=== PATIENT | male | born 1950 | race Caucasian/White ===

== ENCOUNTER 2017-09-22 16:38 | Inpatient (IN) | payer OTHER ==
--- NOTE | 2017-09-22 17:38 | ED ---
HPI Chest Pain - HPI Summary HPI Summary: This is Radha ivory, documenting for attending Kyle Moreno MD. This patient is a 66 year old M presenting to [facility] with a chief complaint of intermittent episodes of sharp mid sternal chest pain beginning at 1230 and again while in the ED lasting roughly 5 minutes each. First onset of pain began while cleaning out the air conditioner, with spontaneous resolution. Patient reports nausea only with episodes of chest pain, but otherwise has no nausea. Chest pain unchanged by eating. Denies SOB and cough. Denies hx of chest pain and AL. PMHX of HTN, NIDDM, high cholesterol, and PTSD. SHx includes former smoker, quit in 2006 Patient sent to ED after going to [place] this morning. - History of Current Complaint Chief Complaint: EDChestPainROMI Time Seen by Provider: 09/22/17 17:26 Hx Obtained From: Patient Onset/Duration: Started Hours Ago, Resolved Time of Onset: 12:30 Timing: Intermittent Initial Severity: Moderate Current Severity: None Pain Intensity: 0 Chest Pain Location: Mid Sternal Chest Pain Radiates: No Character: Sharp/Stabbing, Other: Alleviating Factor(s): Spontaneous Resolution Associated Signs and Symptoms: Positive: Chest Pain. Negative: Shortness of Breath, Cough - Allergy/Home Medications Allergies/Adverse Reactions: Allergies Allergy/AdvReac Type Severity Reaction Status Date / Time No Known Allergies Allergy Verified 09/22/17 16:52 PMH/Surg Hx/FS Hx/Imm Hx Endocrine/Hematology History: Reports: Hx Diabetes Cardiovascular History: Reports: Hx Hypercholesterolemia, Hx Hypertension Psychiatric History: Reports: Hx Post Traumatic Stress Disorder - Immunization History Immunizations Up to Date: Yes Infectious Disease History: No Infectious Disease History: Denies: Traveled Outside the [place] in Last 30 Days - Family History Known Family History: Positive: Hypertension - Social History Alcohol Use: None Substance Use Type: Reports: None Smoking Status (MU): Former Smoker Review of Systems Positive: Chest Pain Negative: Shortness Of Breath, Cough All Other Systems Reviewed And Are Negative: Yes Physical Exam - Summary Physical Exam Summary: Appearance: Well-appearing, Well-nourished Skin: Warm Eyes: Normal ENT: Normal Neck: Supple, nontender Respiratory: Bilateral Expiratory Wheezes Cardiovascular: Tachycardic rate, regular rhythm. Normal S1, S2. Abdomen: Soft, nontender Musculoskeletal: Normal, Strength/ROM Intact Neurological: Normal, A&Ox3 Psychiatric: Normal General: No acute distress Triage Information Reviewed: Yes Vital Signs On Initial Exam: Initial Vitals Temp Pulse Resp BP Pulse Ox 98.9 F 92 17 148/97 96 09/22/17 16:48 09/22/17 16:48 09/22/17 16:48 09/22/17 16:48 09/22/17 16:48 Vital Signs Reviewed: Yes Diagnostics - Vital Signs Vital Signs Temp Pulse Resp BP Pulse Ox 09/22/17 16:48 98.9 F 92 17 148/97 96 - Laboratory Result Diagrams: 09/22/17 18:47 09/22/17 18:47 Lab Statement: Any lab studies that have been ordered have been reviewed, and results considered in the medical decision making process. - Radiology CXR Radiology Interpretation Completed By: Radiologist - NO ACTIVE DISEASE. ED Physician has reviewed this report. - EKG 1746 Cardiac Rate: Tachycardia - 100 BPM EKG Rhythm: Sinus Tachycardia EKG Interpretation: mild /questionable < or = [address] elevation v3 v4 v5 1845 Cardiac Rate: NL - 96 BPM EKG Rhythm: Sinus Rhythm EKG Interpretation: less than [address] elevation lead V3, V4 V5 EKG Comparison: No Significant Change Chest Pain Course/Dx - Course Course Of Treatment: Small about 1mm questionable ST elevation in septolateral leads that appear to be new from previous EKG from August 2017, Dr Candelaria and Dr Saleem consulted. Troponin >2, pt will go to [facility] - Diagnoses Provider Diagnoses: Acute coronary syndrome During the Visit The Following Alert/Code Occurred: STEMI - at 18:40 - Provider Notifications Discussed Care Of Patient With: January Candelaria - cardiology Time Discussed With Above Provider: 17:41 Instructed by Provider To: Admit As Inpatient - believes EKG changes are acute. At 19:00 recommends giving patient Beta stas. Discharge - Sign-Out/Discharge Documenting (check all that apply): Patient Departure - Discharge Plan Condition: Stable Disposition: ADMITTED TO [facility] Referrals: No Primary Care Phys,NOPCP [Primary Care Provider] - - Billing Disposition and Condition Condition: STABLE Disposition: Admitted to [facility] Consult Consult: at 18:48, Dr. Saleem, medications order were confirmed and he will come to ED.
--- NOTE | 2017-09-22 17:51 | RAD ---
INDICATION: Chest pain COMPARISON: November 11, 2011 TECHNIQUE: An AP portable view obtained at 1746 hours is submitted. FINDINGS: Bones/Soft Tissues: There are no acute bony findings. Cardiomediastinal: The cardiomediastinal silhouette is normal. Lungs: There are no infiltrates. Pleura: There are no pleural effusions. Other: None IMPRESSION: NO ACTIVE DISEASE.
[2017-09-22 18:04] LABS: ABS Basophils 0.1 10^3/ul (0-0.2); ABS Eosinophils 0.3 10^3/ul (0-0.6); ABS Monocytes 0.8 10^3/ul (0-0.8); ABS Nucleated RBC 0 10^3/ul; Eosinophil % 3.3 % (0-6); Hematocrit 42 % (42-52); Lymphocyte % 21.9 % (25-47); Mean Corpuscular HGB Conc 35 g/dl (31-36); Mean Corpuscular Hemoglobin 32 pg (27-31); Mean Corpuscular Volume 91 fL (80-94); Mean Platelet Volume 9.1 um3 (7.4-10.4); Nucleated Red Blood Cells % 0; Platelet Count 189 10^3/ul (150-450); Red Blood Count 4.66 10^6/ul (4.00-5.40); Red Cell Distribution Width 13 % (10.5-15); White Blood Count 9.2 10^3/ul (3.5-10.8)
[2017-09-22] MEDS ORDERED: Heparin DRIP 25,000 UNITS(*) 25,000 UNITS/500 ML BAG ONE (18:42)
[2017-09-22] MEDS ORDERED: Heparin for STEMI(*) 5,000 UNITS/ML 1 ML VIAL IV ONE ×2 (18:43→18:44)
[2017-09-22] MEDS ORDERED: Nitroglycerin TAB 0.4 MG* 0.4 MG TAB ONE ×2 (18:43→18:46)
[2017-09-22] MEDS ORDERED: Aspirin 81 mg CHEW TAB* 81 MG TAB.CHEW ONE ×2 (18:44→18:47)
[2017-09-22] MEDS ORDERED: nitroGLYCERIN DRIP* 0 MCG/0 ML BTL ONE (18:44)
[2017-09-22] MEDS ORDERED: Heparin DRIP 25,000 UNITS(*) 25,000 UNITS/500 ML BAG IV SCH (18:45)
[2017-09-22] MEDS ORDERED: Ticagrelor* 90 MG TAB PO ONE ×2 (18:47→18:48)
[2017-09-22] MEDS ORDERED: Aspirin 81 mg CHEW TAB* 81 MG TAB.CHEW PO ONE (18:52)
[2017-09-22] MEDS ORDERED: Nitroglycerin 0.2 MG/HR PATCH* (5 MG) TRANSDERM ONE (18:54)
[2017-09-22] MEDS ORDERED: Heparin 2 UNITS/ML IVPREMIX* 3,000 ML IV ONE (18:56)
[2017-09-22] MEDS ORDERED: nitroGLYCERIN DRIP* 25,000 MCG/250 ML BTL ONE (18:56)
[2017-09-22] MEDS ORDERED: Lidocaine 1%* 5 ML VIAL ONE ×2 (18:57→19:08)
[2017-09-22] MEDS ORDERED: VERAPAMIL 2.5 MG/ML 2 ML VIAL ** 5 mg/2 ml ONE (18:57)
[2017-09-22] MEDS ORDERED: Iohexol 350 (CONTRAST) 200 ML MDV IV ONE (18:58)
[2017-09-22] MEDS ORDERED: Heparin VIAL(*) 5000 UNITS/ML VIAL (FIVE THOUSAND) IV SCH (19:00)
[2017-09-22] MEDS ORDERED: Metoprolol Tartrate TAB* 25 MG PO ONE (19:00)
[2017-09-22 19:11] LABS: Hematocrit 42 % (42-52); Hemoglobin 14.9 g/dl (14.0-18.0); Mean Corpuscular HGB Conc 35 g/dl (31-36); Mean Corpuscular Hemoglobin 32 pg (27-31); Mean Corpuscular Volume 92 fL (80-94); Mean Platelet Volume 9.3 um3 (7.4-10.4); Platelet Count 191 10^3/ul (150-450); Red Blood Count 4.62 10^6/ul (4.00-5.40); Red Cell Distribution Width 13 % (10.5-15); White Blood Count 8.8 10^3/ul (3.5-10.8)
[2017-09-22 19:13] LABS: INR 0.92 (0.77-1.02)
[2017-09-22] MEDS ORDERED: Midazolam* 1 MG/ML 10 ML VIAL (10 MG) ONE (19:26)
[2017-09-22] MEDS ORDERED: fentaNYL* 50 MCG/ML 2 ML VIAL (100 MCG VIAL) ONE (19:26)
[2017-09-22 19:29] LABS: EGFR Non-African American 77.9 (>60)
[2017-09-22] MEDS ORDERED: Heparin(*) 1000 UNIT/ML 10 ML VIAL CATH LAB IV ONE (19:53)
[2017-09-22] MEDS ORDERED: Nitroglycerin TAB 0.4 MG* 0.4 MG TAB SL PRN (20:07)
[2017-09-22] MEDS ORDERED: Zolpidem TAB* 5 MG PO PRN (20:12)
[2017-09-22] MEDS ORDERED: Ondansetron INJ* 2 MG/ML VIAL IV PRN (20:12)
[2017-09-22] MEDS ORDERED: Acetaminophen TAB* 325 MG PO PRN (20:12)
[2017-09-22] MEDS ORDERED: Docusate CAP* 100 MG PO PRN (20:12)
[2017-09-22] MEDS ORDERED: NS 0.9% 1000 ML* 500 ML IV ONE (20:15)
[2017-09-22] MEDS: Metoprolol Tartrate TAB* 25 MG PO SCH (21:38)
[2017-09-22] MEDS: Atorvastatin* 40 MG TAB PO SCH (21:38)
[2017-09-22] MEDS: Magnesium Oxide TAB* 400 MG PO SCH (22:31)
[2017-09-22] MEDS: buPROPion SR TAB.SR* 150 MG PO SCH (22:31)
[2017-09-22] MEDS: busPIRone TAB* 10 MG PO SCH (22:32)
[2017-09-22] MEDS ORDERED: Albuterol HFA INHALER* 8 gm MDI INH SCH (23:00)
[2017-09-23] MEDS: Metoprolol Tartrate TAB* 25 MG PO SCH ×3 (05:53→20:40)
[2017-09-23] MEDS: Ticagrelor* 90 MG TAB PO SCH ×2 (06:02→20:43)
[2017-09-23 07:46] LABS: EGFR Non-African American 74.4 (>60)
[2017-09-23] MEDS ORDERED: Perflutren Lipid Microsphere* 3 ML VIAL ONE (07:56)
[2017-09-23] MEDS: Cetirizine* 10 MG TAB PO SCH (08:36)
[2017-09-23] MEDS: Omeprazole CAP* 20 MG PO SCH (08:36)
[2017-09-23] MEDS: Lisinopril TAB* 10 MG PO SCH (08:36)
[2017-09-23] MEDS: Aspirin 81 mg CHEW TAB* 81 MG TAB.CHEW PO SCH (08:36)
[2017-09-23] MEDS: buPROPion SR TAB.SR* 150 MG PO SCH ×2 (08:36→20:40)
[2017-09-23] MEDS: busPIRone TAB* 10 MG PO SCH ×3 (08:36→20:40)
--- NOTE | 2017-09-23 09:20 | HP ---
ADMISSION HISTORY AND PHYSICAL: CC: Kristy Eldridge NP [place], [place] DATE OF ADMISSION: 09/22/17 CHIEF COMPLAINT: Patient with intermittent chest discomfort throughout the day with abnormal cardiac enzyme and abnormal EKG. HISTORY OF PRESENT ILLNESS: The patient is a pleasant 66-year-old gentleman with no pertinent cardiac history. Specifically, he denies any history of myocardial infarction, congestive heart failure, or significant heart rhythm disturbance. The patient states he was in his usual state of health and earlier today he developed the onset of a chest burning sensation in the midsternal area without significant radiation to the throat jaw, arms, or back. With it, he noted some nauseous feeling. These episodes were brief in nature lasting perhaps 5 minutes. He described having one occurring while he was cleaning out an air-conditioner with spontaneous resolution. According to the emergency room physician note, he did not have any change to the symptoms when he would eat. He denied any significant diaphoresis or shortness of breath. Because of this, he drove to the [facility] and they sent him by ambulance to the emergency room. In the emergency room, an EKG demonstrated mild J-point elevation in the precordial leads without reciprocal changes. At that point in time, the emergency room physician ended up getting the laboratory results and found that the total troponin was 2.18. With that, she called Dr. Candelaria, the non-edge stitcher contracts representative, who reviewed the EKG. Dr. Candelaria compared it to an earlier EKG from several years ago and said that the ST changes were not present then, as such, a STEMI alert was called. On my arrival , the patient was having no significant chest discomfort. He stated when he went to the [place], he was not having any chest discomfort as well. A repeat EKG was done that showed perhaps some improvement to the ST segments and there was mild coving of the J-point elevation in V2. Given the abnormal troponin, EKG, and symptoms, the decision was made to proceed to the cardiovascular laboratory. Of note, he had received heparin 4000 units intravenously, Brilinta 180 mg, and aspirin 325 mg. His cardiac risk factors include a history of hypertension, hyperlipidemia, diabetes. He is a nonsmoker and he has no reported family history of early coronary artery disease. PAST MEDICAL HISTORY: Also includes significant chronic obstructive lung disease. CURRENT MEDICATIONS: Include: 1. Albuterol inhaler 2 puffs every 4 hours. 2. Atorvastatin 40 mg a day. 3. Bupropion 150 mg twice a day. 4. Buspirone 10 mg 3 times a day for anxiety. 5. Cholecalciferol 2000 units by mouth every day. 6. Fluticasone nasal sprays twice a day. 7. Lisinopril 20 mg a day. 8. Loratadine 10 mg a day. 9. Magnesium oxide 400 mg a day. 10. Metformin 500 mg every day. 11. Omeprazole 20 mg once a day. 12. Terbinafine hydrochloride 1% cream topically as needed. REVIEW OF SYSTEMS: Pertinent to proceeding to the cardiovascular laboratory included no history of prior TIA or stroke. He had no history of known renal disease that he was aware of. He had no history of contrast allergy. He had no history of hematemesis, hematochezia, but he did say in the distant past he had hematuria that had been worked up and found no significant abnormalities. PHYSICAL EXAMINATION VITAL SIGNS: When I saw revealed blood pressure 118/90, pulse 98, respirations 19, O2 saturation 94%. HEENT: Conjunctivae were pink. Sclerae clear. Mouth revealed moist mucosa. NECK: Supple. No increased JVP. Carotid had no bruits. LUNGS: Revealed no accessory muscle usage. There was [id number] excursion. There was question of mild expiratory wheeze noted. HEART: Revealed a regular rate and rhythm. No significant systolic or diastolic murmur. ABDOMEN: Soft, nontender without organomegaly. EXTREMITIES: Without edema. Peripheral pulses were intact. Femoral pulse noted without significant bruit. NEUROLOGIC: The patient was alert and oriented with normal mentation. MUSCULOSKELETAL: The patient moved all extremities appropriately. PSYCHOLOGICAL: The patient with normal affect. DIAGNOSTIC STUDIES/LAB DATA: Laboratory results reveal white count 9200, hemoglobin and hematocrit of 15 and 42 with a platelet count of 189,000. The white count had 21.9% lymphs, 8.8% monos. Sodium 134, potassium 4.3, chloride 100, bicarb 24, BUN and creatinine 19 and 0.9, SGOT 23, SGPT 24, troponin was 2.18. Electrocardiogram on admission timed 1746 revealed sinus tachycardia, heart rate 100, CA interval 0.17, QRS 0.08, QT 0.32, axis was +48 degrees. There was very mild J-point elevation compared to the TP segment prior to it noted in V2 through almost V5. There were no significant reciprocal changes. Repeat EKG done while still in the emergency room timed 1844 revealed poor R- wave in V1 and V2 with some coving of the J-point elevation in V2. Once again reciprocal changes were not seen in the inferior leads. OVERALL ASSESSMENT: Mr. Zapien presents now with intermittent symptoms of chest discomfort that clearly sounded anginal in nature. During the day none currently, but with abnormal troponin and with an EKG that is borderline significant for a J- point elevation in the precordial leads that was not present on a prior EKG from 2011. At this point in time, the risks and benefits of cardiac catheterization were explained to him and he understood them. He wished to proceed to get a definitive answer. He has already received appropriately heparin, Brilinta, and aspirin. Further management will be made pending results of the cardiac catheterization. [id number]/[facility] #: [id number] KRISTOPHER
--- NOTE | 2017-09-23 10:35 | ECHO ---
Patient: ISABEL ESPINOSA [facility] Rec#: [id number] : 1950 Date: 09/23/2017 Age: 66y Height: 170.18 cm / 67.0 in Weight: 82.1 kg / 180.9 lbs Sex: M BSA: 1.94 Room#: [facility] Admit Date#: 09/22/2017 Type: Inpatient Referring: Alvarez Saleem MD Reading: Good Angulo DO Associate Merchandise Planner: Shana Glaser [facility] Transthoracic Echocardiogram Indication: NSTEMI BP: 99/71 HR: 69 Rhythm: NSR Findings History: To ED 09/22/17 with NSTEMI. PMHx: HTN,NIDDM,HLD,PTSD. Technical Comments: The study quality is good. Completed at 0837. Left Ventricle: The left ventricular chamber size is normal. Septal wall hypertrophy is observed. There is mildly decreased left ventricular systolic function. The estimated ejection fraction is 45-50%. Abnormal left ventricular diastolic function is observed. The mid anteroseptal, mid anterior, mid anterolateral, apical septal, apical anterior, and apical lateral wall segments are hypokinetic (score 2). Overall wallmotion score index is 1.40 Left Atrium: The left atrium is mildly dilated. Right Ventricle: The right ventricular chamber size and systolic function are within normal limits. Right Atrium: The right atrial cavity size is normal. Aortic Valve: The aortic valve is trileaflet. The aortic valve leaflets are mildly thickened. There is aortic annular calcification.that is mild There is a trace of aortic regurgitation. There is no evidence of aortic stenosis. Mitral Valve: The mitral valve leaflets appear normal. There is a trace of mitral regurgitation. There is no evidence of mitral stenosis. Tricuspid Valve: The tricuspid valve leaflets are normal. There is trace to mild tricuspid regurgitation. There is evidence of borderline pulmonary hypertension. There is no tricuspid stenosis. Pulmonic Valve: The pulmonic valve appears normal. There is no evidence of pulmonic regurgitation. There is no pulmonic stenosis. Pericardium: There is no significant pericardial effusion. Aorta: The ascending aorta is not well visualized. There is no dilatation of the aortic arch. There is no dilation of the aortic root. Pulmonary Artery: The main pulmonary artery is not well visualized. Venous: The venous system is not well visualized. Contrast: Definity was used to optimize study. A total of 3ml used. Intravenous contrast was used to enhance endocardial border definition. Conclusions The left ventricular chamber size is normal. There is mildly decreased left ventricular systolic function. The estimated ejection fraction is 45-50% with mid LAD territory hypokinesis The left atrium is mildly dilated. The right ventricular chamber size and systolic function are within normal limits. There is evidence of borderline pulmonary hypertension. No significant valvular abnromalities noted Definity used to optimize study. None prior for comparison at time of interpretation Measurements Name Value Normal Range RVIDd (AP) 2D 2.5 cm (0.9 - 2.6) RVDdMajor (2D) 3.4 cm (2.2 - 4.4) RAd ISD 4CH 4.6 cm (3.4 - 4.9) RA (A4C)W 3.3 cm (2.9 - 4.6) IVSd (2D) 1.4 cm (0.6 - 1) LVPWd (2D) 0.9 cm (0.6 - 1) LVIDd (2D) 4.1 cm (3.6 - 5.4) LVIDs (2D) 3.5 cm - LV FS (2D) 16 % (25 - 45) Aortic Annulus 2.2 cm (1.4 - 2.6) Ao root diameter (2D) 3.2 cm (2.1 - 3.5) Aortic arch 2.4 cm (1.8 - 3.4) Descending Ao 0.5 cm - LA dimension (AP) 2D 4.3 cm (2.3 - 3.8) LAd ISD 4CH 6 cm (2.9 - 5.3) LA ISD 4CH W 2.8 cm (2.5 - 4.5) Name Value Normal Range LA ESV SP 4CH (A/L) 46 ml - LA ESV SP 2CH (A/L) 46 ml - LA ESV BP (A/L) 47 ml - LA ESV BP (A/L) index 24.25 ml/m2 - LA ESV SP 4CH (MOD) 43 ml - LA ESV SP 2CH (MOD) 41 ml - Name Value Normal Range MV E-wave Vmax 0.8 m/sec - MV deceleration time 166 msec - MV A-wave Vmax 0.9 m/sec - MV E:A ratio 0.82 ratio - LV septal e' Vmax 0.09 m/sec - LV lateral e' Vmax 0.08 m/sec - LV E:e' septal ratio 8.89 ratio - LV E:e' lateral ratio 10 ratio - Name Value Normal Range AV Vmax 1.7 m/sec - AV VTI 33.3 cm - AV peak gradient 10.92 mmHg - AV mean gradient 4.67 mmHg - LVOT Vmax 1.1 m/sec - LVOT VTI 24.2 cm - LVOT peak gradient 4.75 mmHg - LVOT mean gradient 2.19 mmHg - AR PHT 515 msec - AR peak gradient 21.19 mmHg - Name Value Normal Range TR Vmax 2.6 m/sec - TR peak gradient 28 mmHg - RAP 8 mmHg - RVSP 36 mmHg - Name Value Normal Range PV Vmax 0.8 m/sec - PV peak gradient 2.55 mmHg - Wallmotion BAS Normal BA Normal BAL Normal ROBYN Normal BI Normal BIS Normal MAS Hypokinetic MA Hypokinetic MAL Hypokinetic MIL Normal AZ Normal MIS Normal Hypokinetic AA Hypokinetic AL Hypokinetic AI Not Seen APEX Hypokinetic
[2017-09-23] MEDS: Albuterol HFA INHALER* 8 gm MDI INH PRN (12:49)
[2017-09-23] MEDS: Atorvastatin* 40 MG TAB PO SCH (20:40)
[2017-09-23] MEDS: Magnesium Oxide TAB* 400 MG PO SCH (20:40)
--- NOTE | 2017-09-24 02:55 | CATH ---
CC: Kristy Eldridge NP, [place], [place] CARDIAC CATHETERIZATION REPORT: DATE OF PROCEDURE: 09/22/17 - ROOM #ICU-4 INDICATIONS FOR PROCEDURE: The patient with abnormal cardiac enzymes. EKG with J point elevation noted in the precordial leads raising the question of possible injury current versus early repolarization changes with intermittent classic anginal episodes earlier in the day, currently pain free, assessed for underlying coronary artery disease. PROCEDURE: Left aortic catheterization, left ventriculography, coronary arteriography. DESCRIPTION OF PROCEDURE: The patient was interviewed and examined in the emergency room where the risks and benefits were explained. He understood them and wished to proceed. PRECATHETERIZATION LABORATORY RESULTS: Hemoglobin and hematocrit of 15 and 42, white count 9200, platelet count 189,000. BUN and creatinine 19 and 0.9. Troponin was 2.18. CPK-MB was 13.5. Sodium 134, potassium 4.3, chloride 100, bicarb 24. EQUIPMENT UTILIZED: 1. Right radial artery sheath: 6-Kazakh Glidesheath. 2. Diagnostic catheter: 5-Kazakh TIG4 curve catheter, a 6-Kazakh VL 3.5 curved guide catheter for the left coronary artery. 3. Exchange wire: 260 length Aguirre exchange length. 4. Left heart catheterization catheter: 5-Kazakh PIG Performa radial catheter. MEDICATIONS GIVEN: The patient received heparin bolus 4000 units in the emergency room and additional 1000 units was given during the case, aspirin 324 mg and Brilinta 180 mg in the emergency room. The patient receives 25 mg orally metoprolol and nitro ointment 0.2 mg topically in the emergency room. He received Versed 0.5 mg IV in the medical lab assistant. DESCRIPTION OF PROCEDURE: The patient was brought to the Cardiovascular Laboratory. Formal time-out was performed. He was prepped and draped in a sterile fashion. Right radial artery area was anesthetized with 1% lidocaine. Right radial artery was entered and the radial artery cocktail which included 300 mcg of nitroglycerin and 3 mg of verapamil was administered intraarterially. A coronary arteriography was performed followed by the central aortic pressure recorded with the pigtail catheter. The catheter was passed across the aortic valve into the left ventricle. The left ventricular pressure was recorded. Left ventriculography was performed. Following this, additional injections were made into the left coronary system for further analysis. Following this, the catheter and the sheath were removed and the hemostasis was obtained with a Vasc Band. The reverse Barbeau was AB. The total contrast used was 85 cc of Omnipaque dye, the radiation exposure included 7.5 minutes of fluoro time. The air kerma radiation was 930 mGy, the DAP radiation was 6159 microgray per meter square. RESULTS: HEMODYNAMIC DATA: Left heart catheterization - Left ventricular pressure was recorded at 120 over left ventricular end-diastolic pressure of 11, central aortic pressure was recorded at 116/73 with a mean of 95. LEFT VENTRICULOGRAPHY: Performed in the SEVILLA projection revealed moderate hypokinesis to the anterior apical region and distal inferior wall with preservation and borderline hyperdynamic motion of the proximal to mid inferior wall. Of note, run of ventricular tachycardia was noted during the left ventriculogram making overall EF difficult to assess. Estimated overall EF was noted to be approximately 35% to 40%, perhaps better on a post PVC beat. No significant mitral regurgitation was identified. CORONARY ARTERIOGRAPHY: A. Left coronary artery. 1. Left main. Widely patent. 2. Left anterior descending artery - there was moderate atherosclerosis seen in the mid portion of the LAD surrounding the second diagonal branch. Accounting for all views imaged, there appeared to be a 40% to 45% obstruction noted. It was an eccentric-appearing plaque as well. The diagonal branches had no significant stenosis seen throughout their course. There was a 35% to 40 % narrowing seen in the proximal portion of the first diagonal branch. 3. Circumflex artery - a nondominant vessel supplying a first and second high obtuse marginal branch. No significant stenosis was seen throughout across these vessels. B. Right coronary artery - a dominant vessel supplying the PDA and posterior left ventricular branch, there was no significant stenosis seen throughout the course of the vessel. OVERALL ASSESSMENT: Moderate left ventricular systolic dysfunction in a somewhat global pattern involving the anterior apical and distal inferior wall. There was definite preservation of a more proximal inferior wall seen. Medical management will be pursued with beta-stas, continued CASEY inhibition, high-dose statins and dual antiplatelet therapy. Reassessment of LV function within a month to 2 months will be performed to relook to make sure there has been further improvement to overall LV function. [id number]/[facility] #: [id number] [facility]
[2017-09-24] MEDS: Ticagrelor* 90 MG TAB PO SCH ×2 (05:23→21:05)
[2017-09-24] MEDS: Metoprolol Tartrate TAB* 25 MG PO SCH ×2 (07:56→20:53)
[2017-09-24] MEDS: Cetirizine* 10 MG TAB PO SCH (07:56)
[2017-09-24] MEDS: buPROPion SR TAB.SR* 150 MG PO SCH ×2 (07:56→20:53)
[2017-09-24] MEDS: Lisinopril TAB* 10 MG PO SCH (07:56)
[2017-09-24] MEDS: Aspirin 81 mg CHEW TAB* 81 MG TAB.CHEW PO SCH (07:57)
[2017-09-24] MEDS: Omeprazole CAP* 20 MG PO SCH (07:57)
[2017-09-24] MEDS: busPIRone TAB* 10 MG PO SCH ×3 (07:57→20:53)
[2017-09-24] MEDS ORDERED: metFORMIN* 500 MG TAB PO SCH (10:00)
[2017-09-24] MEDS: Magnesium Oxide TAB* 400 MG PO SCH (20:52)
[2017-09-24] MEDS: Atorvastatin* 40 MG TAB PO SCH (20:53)
[2017-09-24] MEDS: Albuterol HFA INHALER* 8 gm MDI INH PRN (21:16)
[2017-09-25] MEDS: Ticagrelor* 90 MG TAB PO SCH ×2 (05:45→21:14)
[2017-09-25] MEDS: Lisinopril TAB* 10 MG PO SCH (08:30)
[2017-09-25] MEDS: metFORMIN* 500 MG TAB PO SCH (08:31)
[2017-09-25] MEDS: Cetirizine* 10 MG TAB PO SCH (08:31)
[2017-09-25] MEDS: Omeprazole CAP* 20 MG PO SCH (08:31)
[2017-09-25] MEDS: busPIRone TAB* 10 MG PO SCH ×3 (08:31→21:05)
[2017-09-25] MEDS: buPROPion SR TAB.SR* 150 MG PO SCH ×2 (08:32→21:05)
[2017-09-25] MEDS: Metoprolol Tartrate TAB* 25 MG PO SCH ×2 (08:32→21:06)
[2017-09-25] MEDS: Aspirin 81 mg CHEW TAB* 81 MG TAB.CHEW PO SCH (08:32)
[2017-09-25] MEDS: Atorvastatin* 40 MG TAB PO SCH (21:05)
[2017-09-25] MEDS: Magnesium Oxide TAB* 400 MG PO SCH (21:05)
[2017-09-26] MEDS: Ticagrelor* 90 MG TAB PO SCH (05:40)
[2017-09-26 07:50] VITALS: BP 126/84
[2017-09-26] MEDS: Metoprolol Tartrate TAB* 25 MG PO SCH (08:26)
[2017-09-26] MEDS: Lisinopril TAB* 10 MG PO SCH (08:26)
[2017-09-26] MEDS: buPROPion SR TAB.SR* 150 MG PO SCH (08:26)
[2017-09-26] MEDS: Cetirizine* 10 MG TAB PO SCH (08:26)
[2017-09-26] MEDS: metFORMIN* 500 MG TAB PO SCH (08:26)
[2017-09-26] MEDS: Omeprazole CAP* 20 MG PO SCH (08:26)
[2017-09-26] MEDS: Aspirin 81 mg CHEW TAB* 81 MG TAB.CHEW PO SCH (08:26)
[2017-09-26] MEDS: busPIRone TAB* 10 MG PO SCH (08:26)
--- NOTE | 2017-09-26 15:34 | DS ---
CC: Kristy Eldridge NP at [facility]. DISCHARGE SUMMARY: DATE OF ADMISSION: 09/22/2017 DATE OF DISCHARGE: 09/26/2017 FINAL DIAGNOSIS: Acute coronary syndrome. SECONDARY DIAGNOSES: 1. Chronic obstructive lung disease. 2. Hypertension. 3. Hyperlipidemia. 4. Borderline type 2 diabetes. HISTORY OF PRESENT ILLNESS: The patient is a pleasant 66-year-old gentleman with no prior known cardiac history. Please refer to the H and P for complete details. He presented with chest burning sensation without any significant radiation. He had multiple episodes that generally were brief in nature occurring when he was doing exertional activity and spontaneously resolving. He eventually was concerned about these enough and as such he proceeded to the [facility] and was sent to the emergency room. Initially, there was a question of mild J-point elevation anteriorly, but his troponin was found to be significantly elevated. He was taken to the cardiovascular laboratory and cardiac catheterization was performed on 09/23/17. Cardiac catheterization demonstrated the presence of moderate coronary artery disease with what appeared to be a 40% to 45% obstruction eccentric in nature in the mid portion to the LAD with NICOLE-3 flow. There was no dye hang-up in the area. There was a 35% to 40% narrowing in the proximal portion of the first diagonal branch. The circumflex and the right coronary artery had no significant lesions. Interestingly, his left ventriculography demonstrated EF that looked about 35% to 40% perhaps better on a post-PVC beat that seemed to involve the anteroapical and distal inferior wall. There was borderline hyperdynamic motion of the proximal to mid inferior wall and the proximal anterior wall. Over the course of the hospitalization, his cardiac enzymes peaked at a total CPK of 234 with an MB of 14.8. His troponin was highest on admission at 2.18 and was in a downward pattern since that time. A catheterization was done on 09/22/17 and on 09/23/17, he underwent an echocardiogram that suggested an abnormal wall motion abnormality with a mid anteroseptal, mid anterior, and mid anterolateral apical region that was hypokinetic. Overall EF appeared better at 45% to 50%. During the course of the hospitalization, he was placed on dual antiplatelet therapy in addition to beta- stas therapy with metoprolol 25 mg twice a day. His dual antiplatelet therapy included aspirin 81 mg a day and ticagrelor (Brilinta), given his ACS presentation. The preference is for ticagrelor over clopidogrel because of its better efficacy. Initially, in the emergency room, his EKG had showed mild ST elevation in the pericardial leads with no significant reciprocal changes. During the course of his hospital, his EKG developed biphasic T-waves in the precordial leads. He was eventually up and around walking multiple laps around the rose without provoking any significant symptoms. PHYSICAL EXAMINATION: On the day of discharge, his vital signs were; blood pressure 126/84 with a pulse of 52, respirations 15, O2 saturation 96% on room air. Neck was supple. There was no increased JVP. Carotids had good upstroke and volume. I did not appreciate definitive bruits. Conjunctivae are pink. Sclerae clear. Lungs reveals no accessory muscle usage. There was minimal wheeze. Heart revealed a regular rate and rhythm. No significant systolic or diastolic murmur. Bradycardic rate was noted. Abdomen was soft. The extremities revealed a well- healed right radial artery area with good antegrade flow. Neurologically, he was alert, oriented. Musculoskeletal: He had normal gait. Psychiatric: Normal affect. MEDICATIONS: At the time of discharge include: 1. Albuterol inhaler 2 puffs q.4 hours p.r.n. 2. Aspirin 81 mg a day. 3. Lipitor 40 mg a day. 4. Bupropion 150 mg twice a day. 5. BuSpar 10 mg 3 times a day. 6. Zyrtec 10 mg daily. 7. Lisinopril 20 mg daily. 8. Mag-Ox 400 mg daily. 9. Metformin 500 mg daily. 10. Metoprolol tartrate 25 mg twice a day. 11. Nitroglycerin as needed. 12. Omeprazole 20 mg daily. 13. Ticagrelor 90 mg a day. He will be seen within 7 to 10 days by myself in followup and consideration will be made to relook at his LV function and possibly consider some form of exercise stress testing down the road to make sure that even though we did not see a definitive critical lesion in the LAD that there is not evidence of reversible ischemia to the anterior wall. He currently is asymptomatic after all day yesterday walking around the halls without provoking any chest, throat, jaw or arm discomfort. I educated him at length with regard to recurrent symptoms in calling the ambulance and coming back immediately and he will go home on nitroglycerin and also sublingual tablets which I instructed him on how to use. We gave him an education booklet for cardiac disease in general. [facility] that he [facility] now including his new ones with the metoprolol 25 mg twice a day and the Brilinta 90 mg twice a day. It is my preference that he remain on ticagrelor and not be switched to clopidogrel at this point. I would give him at least six months on the ticagrelor before switching unless we find some abnormal stress testing and consider re-looking at the LAD at a later time. The patient understood all the information I gave him and will follow up with us. [id number] #: [id number] KRISTOPHER
== END 2017-09-26 12:00 | disposition home or self-care (01) | DRG 287 ==
LOC: ED 16:38 → CHICATH 19:24 → ICU 20:07 → MEDTELE 09-24 15:17
PROVIDERS: ADMIT Internal Medicine Cardiovascular Disease; ATTEND Internal Medicine Cardiovascular Disease
PROC: 4A023N7 Measurement of Cardiac Sampling and Pressure, Left Heart, Percutaneous Approach (ICD-10-PCS; principal; 2017-09-23)
PROC: B211YZZ Fluoroscopy of Multiple Coronary Arteries using Other Contrast (ICD-10-PCS; 2017-09-23)
PROC: B215YZZ Fluoroscopy of Left Heart using Other Contrast (ICD-10-PCS; 2017-09-23)
DX: I24.9 Acute ischemic heart disease, unspecified (principal); I11.9 Hypertensive heart disease without heart failure; J44.9 Chronic obstructive pulmonary disease, unspecified; E78.5 Hyperlipidemia, unspecified; E11.9 Type 2 diabetes mellitus without complications; I25.10 Atherosclerotic heart disease of native coronary artery without angina pectoris; Z79.84 Long term (current) use of oral hypoglycemic drugs; Z79.899 Other long term (current) drug therapy
CPT/HCPCS: 36415; 71045; 80048; 80053; 80061; 82550; 82553; 83605; 83721; 83874; 83880; 84484; 85025; 85027; 85347; 85610; 85652; 85730; 86850; 86900; 86901; 87641; 93005; 93306; 93458; 99285; A9270-GY; C8929; J1644; J2250; J3010